=== PATIENT | female | born 1940 | race Caucasian/White ===

== ENCOUNTER 2017-08-19 19:29 | Emergency (ER) | payer MEDICARE, BC ==
[~2017-08-19] VITALS: Ht 162.6 cm; Wt 47.7 kg
[2017-08-19 21:10] LABS: BASOPHILS % (AUTO) 0.3 % (0-1); EOSINOPHILS # (AUTO) 0.1 X10'3 (0-0.9); HEMATOCRIT 30.9 % (35.0-45.0); HEMOGLOBIN 10.5 g/dl (12.0-16.0); LYMPHOCYTES # (AUTO) 1.2 X10'3 (1.1-4.8); LYMPHOCYTES % (AUTO) 11.1 % (21-51); MEAN CORPUSCULAR HEMOGLOBIN 30.3 PG (27.0-31.0); MEAN CORPUSCULAR HGB CONC 33.9 % (33.0-36.5); MEAN CORPUSCULAR VOLUME 89.4 FL (78-98); MEAN PLATELET VOLUME 9.2 FL (7.4-10.4); MONOCYTES # (AUTO) 0.8 X10'3 (0-0.9); MONOCYTES % (AUTO) 7.8 % (2-12); NEUTROPHILS # (AUTO) 8.5 X10'3 (1.8-7.7); NEUTROPHILS % (AUTO) 79.8 % (42-75); PLATELET COUNT 223 X10'3 (140-440); RED BLOOD COUNT 3.46 X10'6 (4.20-5.60); RED CELL DISTRIBUTION WIDTH 13.2 % (11.5-14.5); WHITE BLOOD COUNT 10.7 X10'3 (4.5-11.0)
[2017-08-19] MEDS ORDERED: LEVO500T2 PO (21:10)
[2017-08-19] MEDS ORDERED: HYDROmorphone inj. 0.5 MG/0.5 ML DISP.SYRIN IV PRN (21:10)
[2017-08-19] MEDS ORDERED: ondansetron/PF 4mg/2ml inj IV ONE (21:10)
[2017-08-19] MEDS ORDERED: HYDROmorphone 1 mg/ml syringe IV PRN (21:14)
[2017-08-19 21:21] LABS: PARTIAL THROMBOPLASTIN TIME 26 SECONDS (22-32); PROTHROMBIN TIME 10.7 SECONDS (9.0-12.0)
[2017-08-19 21:26] LABS: ALANINE AMINOTRANSFERASE 23 U/L (12-78); ALBUMIN 3.4 G/DL (3.4-5.0); ALBUMIN/GLOBULIN RATIO 1.1 (1.1-1.5); ALKALINE PHOSPHATASE 58 IU/L (46-116); ANION GAP 12 (8-16); ASPARTATE AMINO TRANSFERASE 33 U/L (10-37); BILIRUBIN,TOTAL 0.6 MG/DL (0.1-1.0); BLOOD UREA NITROGEN 25 MG/DL (7-18); BUN/CREATININE RATIO 13.4 (6.6-38.0); CALCIUM 8.9 MG/DL (8.5-10.1); CHLORIDE 102 MMOL/L (99-107); CREATININE 1.87 MG/DL (0.40-0.90); GLUCOSE 109 MG/DL (70-104); POTASSIUM 3.6 MMOL/L (3.5-5.1); SODIUM 138 MMOL/L (135-145); TOTAL CARBON DIOXIDE 23.6 MMOL/L (24-32); TOTAL PROTEIN 6.6 G/DL (6.4-8.2); eGFR 26 ML/MIN
[2017-08-19 22:13] VITALS: BP 229/115
== END 2017-08-19 23:12 | disposition home or self-care (01) ==
LOC: ER 19:30
DX: R07.89 Other chest pain (principal); I10 Essential (primary) hypertension; Z95.0 Presence of cardiac pacemaker; Z79.899 Other long term (current) drug therapy
CPT/HCPCS: 36415; 71045; 80053; 84484; 85025; 85610; 85730; 93005; 96374; 96375; 99285; J1170; J2405

== ENCOUNTER 2022-10-06 08:18 | Day surgery (SDC) | payer OTHER ==
[~2022-10-06] VITALS: Ht 162.6 cm; Wt 47.6 kg
[~2022-10-06 08:18] MED LIST: LEVO500T2 PO
[2022-10-06] MEDS ORDERED: normal saline 1000ml 1,000 ML IV PRN (08:45)
[2022-10-06 08:46] VITALS: BP 152/61; PULSE 68; RESP 16; TEMP 97.6; O2SAT 95
[2022-10-06 09:08] LABS: BASOPHILS # (AUTO) 0.1 X10'3 (0-0.2); BASOPHILS % (AUTO) 0.6 % (0-1); EOSINOPHILS # (AUTO) 0.3 X10'3 (0-0.9); EOSINOPHILS % (AUTO) 3.8 % (0-6); HEMATOCRIT 35.9 % (35.0-45.0); HEMOGLOBIN 11.5 g/dl (12.0-16.0); LYMPHOCYTES # (AUTO) 1.4 X10'3 (1.1-4.8); LYMPHOCYTES % (AUTO) 17.5 % (21-51); MEAN CORPUSCULAR HEMOGLOBIN 30.4 PG (27.0-31.0); MEAN CORPUSCULAR VOLUME 95.1 FL (78-98); MEAN PLATELET VOLUME 8.5 FL (7.4-10.4); MONOCYTES # (AUTO) 0.7 X10'3 (0-0.9); MONOCYTES % (AUTO) 8.7 % (2-12); NEUTROPHILS # (AUTO) 5.5 X10'3 (1.8-7.7); NEUTROPHILS % (AUTO) 69.4 % (42-75); PLATELET COUNT 208 X10'3 (140-440); RED BLOOD COUNT 3.77 X10'6 (4.20-5.60); RED CELL DISTRIBUTION WIDTH 16.8 % (11.5-14.5)
[2022-10-06 09:16] LABS: ALBUMIN 3.2 G/DL (3.4-5.0); ANION GAP 11 (8-16); BLOOD UREA NITROGEN 30 MG/DL (7-18); BUN/CREATININE RATIO 7.7 (10.0-20.0); CALCIUM 9.3 MG/DL (8.5-10.1); CHLORIDE 101 MMOL/L (99-107); CREATININE 3.92 MG/DL (0.40-0.90); GLUCOSE 114 MG/DL (70-104); POTASSIUM 4.1 MMOL/L (3.5-5.1); SODIUM 144 MMOL/L (135-145); TOTAL CARBON DIOXIDE 31.7 MMOL/L (24-32); eGFR 11 ML/MIN
[2022-10-06] MEDS ORDERED: NIFE-72 PO (09:23)
[2022-10-06] MEDS ORDERED: ASPI81TA52 PO (09:23)
[2022-10-06] MEDS ORDERED: IBUP100T53 PO (09:23)
[2022-10-06] MEDS ORDERED: MELA2.5T16 PO (09:23)
[2022-10-06] MEDS ORDERED: ATOR-2 PO (09:23)
[2022-10-06] MEDS ORDERED: BETA1TAB20 PO (09:23)
[2022-10-06] MEDS ORDERED: DORZ10DR10 EACHEYE (09:23)
[2022-10-06] MEDS ORDERED: VITA0.4T2 PO (09:23)
[2022-10-06] MEDS ORDERED: TRAV2.5D6 EACHEYE (09:23)
[2022-10-06] MEDS ORDERED: LABE300T4 PO (09:23)
[2022-10-06] MEDS ORDERED: LOPE-190 PO (09:23)
[2022-10-06] MEDS ORDERED: iohexol 300mg/ml 100ml inj. ONE (10:45)
[2022-10-06] MEDS ORDERED: midazolam 1 mg/ML 2ml injection ONE ×2 (10:45→12:00)
[2022-10-06] MEDS ORDERED: heparin 1,000 UNITS/NS 500ml 0 ML ONE (10:45)
[2022-10-06] MEDS ORDERED: fentaNYL/PF 50MCG/1 ML 2ML syringe ONE ×2 (10:45→12:00)
[2022-10-06] MEDS ORDERED: CLOP75TA34 PO (10:47)
[2022-10-06 11:00] VITALS: RESP 16; O2SAT 95
[2022-10-06] MEDS ORDERED: heparin 1,000 UNITS/NS 500ml 500 ML ONE (12:19)
[2022-10-06 12:47] VITALS: BP 141/55; PULSE 65; RESP 16; O2SAT 92
[2022-10-06 13:15] VITALS: BP 146/54; PULSE 65; RESP 16; O2SAT 92
[2022-10-06 13:30] VITALS: BP 130/55; PULSE 64; RESP 16; O2SAT 93
[2022-10-06 13:45] VITALS: BP 143/56; PULSE 64; RESP 16; O2SAT 93
== END 2022-10-06 14:25 | disposition home or self-care (01) ==
LOC: SSTAY O 08:18
PROVIDERS: ATTEND Radiology Vascular & Interventional Radiology
DX: T82.858A Stenosis of other vascular prosthetic devices, implants and grafts, initial encounter (principal); N18.6 End stage renal disease; I50.9 Heart failure, unspecified; I25.10 Atherosclerotic heart disease of native coronary artery without angina pectoris; Z88.8 Allergy status to other drugs, medicaments and biological substances; Z88.5 Allergy status to narcotic agent; Z79.01 Long term (current) use of anticoagulants; Z79.899 Other long term (current) drug therapy; Z79.82 Long term (current) use of aspirin; Z95.0 Presence of cardiac pacemaker; Y83.2 Surgical operation with anastomosis, bypass or graft as the cause of abnormal reaction of the patient, or of later complication, without mention of misadventure at the time of the procedure; Y92.89 Other specified places as the place of occurrence of the external cause
CPT/HCPCS: 36415; 36901; 36907; 80048; 85025; 85610; 99152; 99153; C1725; C1769; J1644; J2250; J3010; J7030; Q9967; 36902; A4620; A6213; A6258; A6449; C1894